=== PATIENT | male | born 1950 | race Caucasian/White ===

== ENCOUNTER → 2018-05-15 | Outpatient (CLI) | payer MEDICARE ==
[~2018-05-15] MED LIST: ACET325T14 PO; ALFU10TA PO; ASPI325T17 PO; FLEC150T PO; FLUT9.9S NAS; MULT1TAB60 PO; OMEP20CA9 PO; ROSU5TAB PO; VERA120T74 PO; WARF7.5T46 PO
== END | disposition home or self-care (01) ==
LOC: CVU 13:41
PROVIDERS: ATTEND Internal Medicine
DX: M47.892 Other spondylosis, cervical region (principal); M25.78 Osteophyte, vertebrae; E78.5 Hyperlipidemia, unspecified; I48.91 Unspecified atrial fibrillation; R25.2 Cramp and spasm
CPT/HCPCS: 72040; 72072; 93922

== ENCOUNTER 2019-04-14 06:49 | Outpatient (CLI) | payer MEDICARE | END 2019-04-14 23:59 | disposition home or self-care (01) | LOC: CFH 06:49 | PROVIDERS: ATTEND Nurse Practitioner Family | DX: I21.19 ST elevation (STEMI) myocardial infarction involving other coronary artery of inferior wall (principal); I25.9 Chronic ischemic heart disease, unspecified; I48.91 Unspecified atrial fibrillation | CPT/HCPCS: 78452; 93017; 93306; A9502; J2785 ==

== ENCOUNTER → 2020-04-14 | Outpatient (CLI) | payer MEDICARE ==
[~2020-04-14] MED LIST changes: +MULT-449 PO; -MULT1TAB60 PO; -VERA120T74 PO; +VERA120T8 PO
== END | disposition home or self-care (01) ==
LOC: CVU 14:41
PROVIDERS: ATTEND Internal Medicine Cardiovascular Disease
DX: I08.8 Other rheumatic multiple valve diseases (principal); I48.91 Unspecified atrial fibrillation; E78.5 Hyperlipidemia, unspecified; Z95.0 Presence of cardiac pacemaker
CPT/HCPCS: 93306